=== PATIENT | male | born 1950 | race Caucasian/White ===

== ENCOUNTER 2021-01-12 04:55 | Emergency (ER) | payer MEDICARE, OTHER ==
[~2021-01-12] VITALS: Ht 175.3 cm; Wt 99.8 kg
[~2021-01-12 04:55] MED LIST: ASPI-485 PO; HYDR25TA9 PO; LISI20TA21 PO; METO50TA6 PO
[2021-01-12 05:14] VITALS: BP_SYST 130; BP_DIAS 60; BP_DIAS 78
--- NOTE | 2021-01-12 05:31 | DIREP ---
PROCEDURE:CT HEAD WITHOUT CONTRAST TECHNIQUE:Axial cuts were obtained through the head, without intravenous contrast material. The images were viewed at brain and bone settings. COMPARISON:None. INDICATIONS:Acute left hand numbness, history of prior stroke on Eliquis, status post C FINDINGS: VENTRICLES:Normal. CEREBRUM:There is no evidence of intracranial hemorrhage. No midline shift or focal mass effect is seen. Minimal supratentorial involutional changes are noted. Atherosclerosis is noted within the left vertebral artery and cavernous portions of the internal carotid arteries. CEREBELLUM:Normal. BRAINSTEM:Normal. SKULL:Normal. SINUSES:Normal. OTHER:Negative. CONCLUSION: 1. CT scan of the brain is unremarkable. Dictated by: Baron Mckeon M.D. on 01/12/2021 at 05:28 AM
--- NOTE | 2021-01-12 05:32 | DIREP ---
PROCEDURE:CHEST 1 VIEW COMPARISON:[facility], CR, XRAY CHEST 2 VWS, 11/29/2018, 10:48 AM. INDICATIONS:Acute left hand numbness, prior history of stroke, status post CABG with wh FINDINGS: LUNGS/PLEURA:No significant pulmonary parenchymal abnormalities. No effusions. VASCULATURE:Atherosclerotic disease of the thoracic aorta is noted. CARDIAC:Normal. No cardiac silhouette abnormality or cardiomegaly. Status post CABG. MEDIASTINUM:Normal. No visible mass or adenopathy. BONES:Normal. No fracture or visible bony lesion. OTHER:Negative. CONCLUSION: 1. No active cardiopulmonary disease demonstrated; status post CABG. No change is noted since 11/29/2018. Dictated by: Baron Mckeon M.D. on 01/12/2021 at 05:30 AM
[2021-01-12 05:42] LABS: BASOPHIL # 0.1 10^3/uL (0.0-0.1); BASOPHIL % 0.6 % (0.0-0.2); EOSINOPHIL # 0.2 10^3/uL (0.0-0.2); EOSINOPHIL % 2.8 % (0.0-5.0); LYMPHOCYTES # 2.41 10^3/uL1 (1.0-4.8); LYMPHOCYTES % 30.2 % (24.0-44.0); MEAN CORP HGB 32.5 pg (26-34); MONOCYTES # 0.8 10^3/uL (0.3-0.8); MONOCYTES % 9.9 % (5.0-12.0); NEUTROPHIL # 4.5 10^3/uL (1.8-7.7); NEUTROPHILS % 56.2 % (41.0-85.0); PLATELET COUNT 206 10^3/uL (150-400); RED CELL DISTRIBUTION WIDTH 14.2 % (11.5-14.5)
--- NOTE | 2021-01-12 05:44 | PCM.EKG ---
[facility] Test Date: 2021-01-12 Test Time: 05:25:55 Pat Name: MARLENE PALMER Department: Room: Gender: M Artists' Model: : 1950 Requested By: MARY MENDOZA Order Number: [id number] Reading MD: Mary Mendoza Jr Measurements Intervals [place] Rate: 84 P: 72 WI: 146 QRS: 68 QRSD: 112 T: 60 QT: 446 QTc: 528 Interpretive Statements Sinus rhythm Borderline intraventricular conduction delay Prolonged QT interval No previous ECG available for comparison Electronically Signed On 01-13-2021 3:57:32 CDT by Mary Mendoza Jr Please click the below link to view image of tracing.
--- NOTE | 2021-01-12 05:50 | ER.PDOC ---
General Chief Complaint: Stroke Symptoms Stated Complaint: POSS STROKE Time seen by MD: 04:57 Source: patient, family Exam Limitations: no limitations History of Present Illness Initial Comments This 70-year-old male is here accompanied by his having had onset of numbness/tingling in the entire left hand at 3:45 AM and states that he felt like he was drunk and could not walk easily. He did not fall and did not have any sensation of vertigo but did feel that he did not have his normal coordination when walking. He notified his at 4:30 AM that he wanted to come to the emergency department when the symptoms did not resolve spontaneously. He denies any headache or any head injury. He suffered a right sided sensory and motor deficit stroke in June 2020 and has rehabbed reclaiming most of his normal function with no speech deficits or other cognit carly deficits and only minimal limp involving weakness of the right leg. Since the original stroke he has been on Eliquis and aspirin 81 mg as well as atorvastatin. The stroke in June was treated at [facility] in [place]. Patient has had a left carpal tunnel release a number of years ago with no residual numbness in the left hand associated with that. He underwent a three-vessel CA BG in 2009 and has not undergone a recatheterization since that time. He does not have angina or use nitroglycerin or other nitrates. Patient was drinking between 12 and 18 beers daily until he had the stroke in June and has completely stopped drinking since. He smoked a number of years ago but was using smokeless tobacco until the stroke in June. Allergies: Uncoded Allergies: NO KNOW ALLERGY (Allergy, Unknown, 06/10/17) NO ALLERGYS Home Meds Reported Medications Aspirin (ASPIR 81) 81 Mg Tablet.dr, 81 MG PO DAILY 07/13/17 Lisinopril (LISINOPRIL) 20 Mg Tablet, 20 MG PO DAILY, TABLET 07/13/17 Hydrochlorothiazide (HYDROCHLOROTHIAZIDE) 25 Mg Tablet, 25 MG PO DAILY, TABLET 07/13/17 Metoprolol Tartrate 50MG (LOPRESSER 50MG) 50 Mg Tablet, 50 MG PO DAILY for HYPERTENSION, #60 TAB 07/13/17 Past Medical History Medical History: CVA/TIA/stroke, coronary artery disease, cardiac problems, high cholesterol, hypertension, thyroid disease, other (Patient is on 25 mcg of levothyroxine daily but does not know the basis of his hypothyroidism. No recent weight loss or weight gain and no medication changes) Surgical History: back, other (Patient prior surgeries include 2 lumbar disc surgeries many years ago. Three-vessel CABG 2009. Carpal tunnel release left hand shortly after 1999.) Family History Significant Family History: heart disease, hypertension Social History Smoking: quit greater than 1 year Alcohol Use: none Drug Use: none Review of Systems Constitutional: see HPI Eyes: denies blurred vision, denies decreased acuity, denies pain, denies photophobia, denies shadows, denies tunnel vision Ears, Nose, Mouth, Throat: no symptoms reported Respiratory: see HPI; denies cough, denies shortness of breath, denies stridor, denies wheezing, denies other (Patient has a history of mild dyspnea with exertion if he walks too far and too fast) Cardiovascular: see HPI; denies chest pain, denies edema, denies palpitations, denies syncope Gastrointestinal: denies abdominal pain, denies constipation, denies diarrhea, denies nausea Genitourinary: denies discharge, denies dysuria, denies hematuria, denies pain Musculoskeletal: see HPI, back pain; denies joint pain, denies joint swelling, denies muscle pain, denies muscle stiffness, denies neck pain Skin: no symptoms reported Psychiatric/Neurological: see HPI Endocrine: see HPI; denies unexplained weight gain, denies unexplaned weight loss Hematologic/Lymphatic: see HPI Physical Exam General Appearance: alert, no distress, anxious HEENT: no apparent trauma, no nystagmus, PERRL, pharynx nml, airway intact, oral exam nml Neuro/Psych: oriented x3, nml speech/cognition, nml mood/affect Cranial Nerves: nml as tested, other (Patient has symmetrical face with symmetrical movement and normal muscles of facial expression as well as mastication) Cerebellar: other (Patient has nearly normal dmaaol-psko-hipyjc with the exception of subtle left hand dysmetria on closed eye [id number] but normal finger follow. No dysarthric movement or clogging. Good maintenance of rapid alternating movements. Romberg and gait are not tested but the patient is able to transfer to the stretcher without assistance) Peripheral Exam: motor nml, reflexes nml, other (Patient has no widespread sensory deficits or any cutaneous nerve deficits in the hands but does have sensory alteration in the entire left hand in a glove distribution. He has a well-healed carpal tunnel surgical scar and this is not an exacerbation of carpal tunnel. NIH stroke scale has one-point for the left hand deficit. ) Neck: supple, non-tender, no carotid bruit Respiratory: no resp distress, wheezing, other (Patient has mild diffuse wheez ing more on the right than the left but no use of accessory muscles. He has no dullness to percussion over any lung feels and has no loss of cardiac dullness. No increased AP diameter or hyperresonance to percussion. No active coughing.) CVS: reg rate & rhythm, murmur, other (Patient has a 2/6 systolic ejection murmur but no neck vein distention and only trace dependent edema. No friction rub. No ectopy heard on extended auscultation or seen on the monitor.) Abdomen: non-tender, no distention, hepatomegaly, other (Patient has a moderate umbilical hernia easily reduced and has widening of the median raphae without ventral hernia. Abdomen is soft and nontender and otherwise negative) Skin: color nml, no rash, warm/dry Extremities: non-tender, nml ROM, other (Patient has multiple lumbar surgical scars, well-healed with reduced lumbar lordosis but no list or muscle tone asymmetry in the back. Negative SLRs. Patient has trace dependent edema but no palpable cords and negative Homans' sign) Results/Orders Results/Orders Orders - MARY GIRON MD Cbc With Auto Diff (01/12/21 05:05) Comprehensive Metabolic Panel (01/12/21 05:05) Creatine Kinase (01/12/21 05:05) PT (01/12/21 05:05) Xr Chest 1v (01/12/21 05:05) Partial Thromboplastin Time. (01/12/21 05:05) Troponin I (01/12/21 05:05) Urinalysis (01/12/21 05:05) Ekg-Routine (01/12/21 05:05) Ct Head Wo Contrast (01/12/21 05:05) Rt O2 Per Hour (01/12/21 05:05) Saline Lock (01/12/21 05:05) Covid19 Antigen Brianna Deb (01/12/21 05:05) Vital Signs Date Time Temp Pulse Resp B/P (MAP) Pulse Ox O2 Delivery O2 Flow Rate FiO2 01/12/21 05:14 98.0 78 22 01/12/21 05:14 98.0 78 20 95 01/12/21 05:14 98.0 78 22 95 Laboratory Tests Test 01/12/21 05:40 White Blood Count 8.0 10^3/uL (4.5-11.0) Red Blood Count 4.68 10^6/uL (4.50-5.90) Hemoglobin 15.2 g/dL (13.9-16.3) Hematocrit 46.3 % (37.0-53.0) Mean Corpuscular Volume 98.9 fL (78-100) Mean Corpuscular Hemoglobin 32.5 pg (26-34) Mean Corpuscular Hemoglobin Concent 32.8 g/dL (33-36.5) L Red Cell Distribution Width 14.2 % (11.5-14.5) Platelet Count 206 10^3/uL (150-400) Mean Platelet Volume 10.5 fL (7.8-11.0) Neutrophils (%) (Auto) 56.2 % (41.0-85.0) Lymphocytes (%) (Auto) 30.2 % (24.0-44.0) Monocytes (%) (Auto) 9.9 % (5.0-12.0) Neutrophils # (Auto) 4.5 10^3/uL (1.8-7.7) Lymphocytes # (Auto) 2.41 10^3/uL1 (1.0-4.8) Monocytes # (Auto) 0.8 10^3/uL (0.3-0.8) Absolute Immature Granulocyte (auto 0.02 10^3 u/L (0-2) Absolute Eosinophils (auto) 0.2 10^3/uL (0.0-0.2) Immature Granulocytes % 0.30 % (0.00-0.50) Eosinophils % 2.8 % (0.0-5.0) Basophils % 0.6 % (0.0-0.2) H Basophils # 0.1 10^3/uL (0.0-0.1) Prothrombin Time 10.8 SEC (9.6-12.0) Prothrombin Time INR (Non-Therap) 1.0 Activated Partial Thromboplast Time 25.4 SEC (24.67-30.72) Sodium Level 139 mmol/L (132-145) Potassium Level 4.1 mmol/L (3.6-5.2) Chloride Level 103.0 mmol/L (96-109) Carbon Dioxide Level 25.2 mmol/L (20.0-32) Anion Gap 14.9 Blood Urea Nitrogen 28 mg/dL (7-18) H Creatinine 1.03 mg/dL (0.59-1.40) Estimated GFR () 86.9 (>/=60) Est GFR (CKD-EPI)(Non-Afr Haitian) 71.8 (>/=60) BUN/Creatinine Ratio 27.0 Glucose Level 106 mg/dL (70-110) Calcium Level 8.9 mg/dL (8.4-10.5) Total Bilirubin 1.0 mg/dL (0.2-1.0) Aspartate Amino Transferase (AST) 15 U/L (0-35) Alanine Aminotransferase (ALT) 25 U/L (12-78) Alkaline Phosphatase 65 U/L (50-136) Total Creatine Kinase 45 U/L (39-308) Troponin I < 0.02 ng/mL (0.00-0.05) Total Protein 6.8 g/dL (6.4-8.2) Albumin 3.6 g/dL (3.4-5.0) Globulin 3.2 Albumin/Globulin Ratio 1.125 SARS-CoV-2 Antigen (Rapid) NEGATIVE (NEGATIVE) Progress Progress Patient is being transferred to [facility] for further assessment and care after negative CT scan and negative labs. Despite history of heavy alcohol intake for years the patient has no liver dysfunction on labs. BUN/creatinine ratio is slightly elevated consistent with poor hydration. No renal failure. Normal anion gap and electrolytes. CBC is normal. Patient is on Eliquis and PT and INR show as normal. NIHSS calculates as 1. Ultimately with assistant facility manager we ambulated the patient and he does not bear off in either direction but has some gait dysarthria and he does have a positive Romberg which was not initially tested. Patient is within the window for thrombolysis but stroke score is too low and posterior infarct symptoms/signs are not severe enough to warrant thrombolysis. Patient is already on Eliquis and aspirin and has not missed any medications. I had a discussion with the patient and his about consideration of thrombolysis and we jointly have elected to forego thrombolysis for this relatively mild posterior infarct. EKG/XRAY/CT/US EKG: NSR EKG Comments: Patient has long QTc 528 ms. QRS duration 112 ms with intraventricular con XRAY Comments: Chest x-ray shows no infiltrates or effusions, no cardiomegaly, Patient trin[place] CT Comments: CT head scan is unremarkable with no significant atrophy for age, no bleedi ER DEPART Departure Time of Disposition: 06:25 Disposition: 02 XFER SHT-TRM HOSP Impression: Primary Impression: Acute stroke due to ischemia Condition: Stable Patient Instructions: Stroke Prevention, [id number]-[id number], Stroke, Pfvn-tr-Bvsj, Stroke, Therapy After, Adult Referrals: ISIDRA YU FISH CHECKER (PCP) PRIMARY CARE PROVIDER Duration or Time Spent with Pa: 45 minutes with 5 rechecks Return to Work/School Can a patient return to work?: No Critical Care Note Total Time (mins): 45 Comments Patient has required acute assessment and consideration of thrombolysis for mild posterior infarct with minimal gait deficit and mild positive Romberg. Shared decision making utilized in holding thrombolysis MARY GIRON MD Jan 12, 2021 05:50
--- NOTE | 2021-01-12 06:01 | NUR ---
COVID NEGATIVE, EDP NOTIFIED
[2021-01-12 06:06] LABS: ALANINE AMINOTRANSFERASE(ML) 25 U/L (12-78); ALKALINE PHOSPHATASE 65 U/L (50-136); ASPARTATE AMINO TRANSFERASE 15 U/L (0-35); CALCIUM 8.9 mg/dL (8.4-10.5); CARBON DIOXIDE 25.2 mmol/L (20.0-32); GLUCOSE 106 mg/dL (70-110)
[2021-01-12 06:49] VITALS: BP 156/70
--- NOTE | 2021-01-12 06:49 | NUR ---
[facility] PT TAKEN BY EMS TO [facility] ED IN STABLE CONDITION.
== END 2021-01-12 06:49 | disposition short-term general hospital (02) ==
LOC: ER 04:55
DX: I63.89 Other cerebral infarction (principal); Z20.822 Contact with and (suspected) exposure to COVID-19; E07.9 Disorder of thyroid, unspecified; E78.00 Pure hypercholesterolemia, unspecified; I10 Essential (primary) hypertension; I25.10 Atherosclerotic heart disease of native coronary artery without angina pectoris; Z79.01 Long term (current) use of anticoagulants; Z79.82 Long term (current) use of aspirin; Z79.899 Other long term (current) drug therapy; Z82.49 Family history of ischemic heart disease and other diseases of the circulatory system; Z95.1 Presence of aortocoronary bypass graft
CPT/HCPCS: 70450; 71045; 80053; 82550; 84484; 85025; 85610; 85730; 87426; 93005; 99291

== ENCOUNTER → 2021-03-06 | Outpatient (CLI) | payer MEDICARE, OTHER ==
[~2021-03-06] MED LIST changes: +LEXISCAN IV STA
--- NOTE | 2021-03-07 04:28 | STRESS ---
DATE OF SERVICE: 03/06/2021 DICTATOR NAME: BRETT MIRANDAKASSIDYScott CARDIAC STRESS TEST INDICATION: Chest pain. FINDINGS: Baseline EKG shows normal sinus rhythm with poor R-wave progression, likely normal variant. Stress EKG shows sinus tachycardia, unchanged from baseline. At the end of recovery, EKG shows normal sinus rhythm, unchanged from baseline. Frequent premature ventricular complexes are noted during stress and at recovery. Baseline blood pressure is 155/67 and remained the same during stress. At the end of recovery, the blood pressure was 154/76. Baseline heart rate is 90 beats per minute and bill to 103 beats per minute during stress. At the end of recovery, the heart rate was 93 beats per minute. Blood pressure and heart rate were appropriate for stress. There were no significant symptoms noted during stress. There were no arrhythmias noted during stress. EKG portion of stress test is negative for myocardial ischemia. Nuclear images were obtained with a rest dose of 10.44 mCi technetium 99 sestamibi and stress dose of 31.0 mCi technetium 99 sestamibi. Nuclear images show a large area of periinfarct ischemia involving the inferior wall. Left ventricular ejection fraction is 50%. EDV is 162 mL, ESV is 81 mL. The left ventricle is moderately dilated. Gated motion images shows normal wall motion across all segments of the left ventricle. TID is 1.2. There is no evidence of diaphragmatic attenuation artifact. IMPRESSION: 1. There is a large area of periinfarct ischemia involving the inferior wall. 2. The left ventricle is moderately dilated. 3. Left ventricular ejection fraction of 50%. 4. This is an abnormal study. Recommend left heart catheterization. Lilliam PORTER D.O. DR: JULIA TID: [id number] RECEIPT: [id number]
== END | disposition home or self-care (01) ==
LOC: RAD 08:57
PROVIDERS: ATTEND Internal Medicine Interventional Cardiology
DX: I10 Essential (primary) hypertension (principal); I25.89 Other forms of chronic ischemic heart disease
CPT/HCPCS: 78452; 93017; A9500; J2785

== ENCOUNTER → 2021-03-14 | Outpatient (CLI) | payer MEDICARE, OTHER ==
[~2021-03-14] MED LIST changes: -LEXISCAN IV STA
--- NOTE | 2021-03-14 21:56 | PCM.ECHO ---
APPROVED REPORT EXAM: Comprehensive 2D, Doppler, and color-flow Echocardiogram. Patient Location: OUT-PATIENT Indications Hypertension/HDD 2D Dimensions LVOT Diameter 2.55 (1.8-2.4cm) LVEF(%) 19.61 (>50%) M-Mode Dimensions Left Atrium(MM) 4.20 (2.5-4.0cm) IVSd 1.00 (0.7-1.1cm) Aortic Root 4.10 (2.2-3.7cm) LVDd 5.95 (4.0-5.6cm) Aortic Cusp Exc 1.65 (1.5-2.0cm) PWd 1.60 (0.7-1.1cm) MV EPSS 3.10 (<0.5cm) IVSs 1.85 cm FS (%) 42.10 % LVDs 3.40 (2.0-3.8cm) ESV(Teich) 49.03 ml PWs 1.50 cm LVEF(%) 72.27 (>50%) Volumes Biplane 2D LV Volumes Biplane 2D LA Volumes LVEDv A4C 142.46 mL LA ESV Index LVESv A4C 114.52 mL Aortic Valve AoV Peak Javier. 0.95 m/s AoV VTI 23.75 cm AO Peak GR. 3.80 mmHg AO Mean GR. 2.10 mmHg LVOT VTI 30.33 cm LVOT Peak Javier. 1.27 m/s ASHLEY(VTI)/BSA 6.53 cm2/m2 ASHLEY (VTI) 6.53 cm2 AI P 1/2 Time 640.80 ms Mitral Valve MV E Velocity 0.60m/s MR Peak Gr. 28.80mmHg MV A Velocity 0.55m/s Pulmonary Valve PV Peak Velocity 0.55m/s PV Peak Grad. 1.25mmHg RVOT VTI 14.86cm Tricuspid Valve TR P. Velocity 1.45m/s RAP ESTIMATE 10.00mmHg TR Peak Gr. 8.62mmHg RVSP 18.62mmHg LEFT VENTRICLE The left ventricle is normal size. The left ventricular systolic function is normal. The left ventricular ejection fraction is within the normal range. There is normal left ventricular wall thickness. There is normal LV segmental wall motion. There is no ventricular septal defect visualized. No left ventricle thrombus noted on this study. LVEF is 60-65%. RIGHT VENTRICLE The right ventricle is normal size. The right ventricular systolic function is normal. There is normal right ventricular wall thickness. ATRIA The left atrium size is normal. The right atrium size is normal. The interatrial septum is intact with no evidence for an atrial septal defect. AORTIC VALVE The aortic valve is normal in structure. There is no aortic valvular stenosis. Severe aortic regurgitation. There is no aortic valvular vegetation. MITRAL VALVE The mitral valve is normal in structure. There is no mitral valve stenosis. Moderate mitral regurgitation. There is no evidence of mitral valve vegetations. TRICUSPID VALVE The tricuspid valve is normal in structure. There is no tricuspid valve stenosis. Mild tricuspid regurgitation. PULMONIC VALVE Pulmonic valve is not well visualized. There is no pulmonic valvular stenosis. There is no pulmonic valvular regurgitation. GREAT VESSELS The aortic root is normal in size. Pulmonary artery is not well visualized. Aortic arch is not well visualized. The IVC is normal in size and collapses >50% with inspiration. PERICARDIUM There is no pericardial effusion. There is no pleural effusion. Other Information Study Quality: Fair Further Testing Further Testing : For further evaluation BONI is recommended. <Conclusion> The left ventricular systolic function is normal. LVEF is 60-65%. Severe aortic regurgitation. Moderate mitral regurgitation. Mild tricuspid regurgitation. Electronically signed by : BRETT BENITEZ. 03/14/2021 21:56:10
== END | disposition home or self-care (01) ==
LOC: RT 12:44
PROVIDERS: ATTEND Internal Medicine Interventional Cardiology
DX: I08.3 Combined rheumatic disorders of mitral, aortic and tricuspid valves (principal); I10 Essential (primary) hypertension
CPT/HCPCS: 93306

== ENCOUNTER 2021-03-20 11:50 | Day surgery (SDC) | payer MEDICARE, OTHER ==
[2021-03-18 09:44] VITALS: BP 159/68
--- NOTE | 2021-03-18 10:13 | PCM.EKG ---
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
[2021-03-18 10:19] LABS: BASOPHIL % 0.6 % (0.0-0.2); EOSINOPHIL # 0.2 10^3/uL (0.0-0.2); EOSINOPHIL % 3.7 % (0.0-5.0); LYMPHOCYTES # 1.87 10^3/uL1 (1.0-4.8); LYMPHOCYTES % 30.1 % (24.0-44.0); MEAN CORP HGB 32.4 pg (26-34); MONOCYTES # 0.6 10^3/uL (0.3-0.8); MONOCYTES % 9.8 % (5.0-12.0); NEUTROPHIL # 3.4 10^3/uL (1.8-7.7); NEUTROPHILS % 55.5 % (41.0-85.0); PLATELET COUNT 204 10^3/uL (150-400); RED CELL DISTRIBUTION WIDTH 14.1 % (11.5-14.5)
[2021-03-18 10:36] LABS: CALCIUM 8.9 mg/dL (8.4-10.5); CARBON DIOXIDE 29.5 mmol/L (20.0-32)
[~2021-03-20] VITALS: Ht 170.2 cm; Wt 102.1 kg
[~2021-03-20 11:50] MED LIST changes: +SUBLIMAZE ONE; +VERSED ONE; +XYLOCAINE ONE
[2021-03-20 11:55] VITALS: BP 156/65
[2021-03-20] MEDS: NS 1000ML 1,000 ML IV SCH (12:20)
[2021-03-20] MEDS ORDERED: ATOR40TA PO (15:38)
[2021-03-20] MEDS ORDERED: LEVO75TA6 PO (15:38)
[2021-03-20] MEDS ORDERED: APIX5TAB PO (15:38)
[2021-03-20] MEDS ORDERED: CYCL5TAB PO (15:38)
[2021-03-20] MEDS ORDERED: LEVO25TA PO (15:38)
[2021-03-20] MEDS ORDERED: HYDR-3101 PO (15:38)
[2021-03-20] MEDS ORDERED: HEPARIN ONE (17:23)
[2021-03-20] MEDS ORDERED: VERSED ONE (17:24)
[2021-03-20] MEDS ORDERED: SUBLIMAZE ONE (17:24)
[2021-03-20] MEDS ORDERED: PLAVIX ONE (17:38)
[2021-03-20] MEDS ORDERED: ASPIRIN ONE (17:38)
[2021-03-20] MEDS ORDERED: NORCO 7.5MG PO PRN (21:00)
[2021-03-20] MEDS ORDERED: LIPITOR PO SCH (21:00)
[2021-03-20] MEDS ORDERED: LEVOTHYROXINE SODIUM PO SCH (21:00)
[2021-03-20] MEDS ORDERED: APRESOLINE IV PRN (21:00)
--- NOTE | 2021-03-20 22:48 | [facility] ---
DATE OF SERVICE: 03/20/2021 DICTATOR NAME: BRETT BENITEZ DO INDICATIONS: Abnormal cardiac stress test. This is a 71-year-old male who was seen in the outpatient setting for chest discomfort. He underwent cardiac ischemic workup, which was noted to be abnormal. In view of these, he was set up for left heart catheterization after informed consents were obtained. PROCEDURES PERFORMED: 1. 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 Status post successful percutaneous coronary intervention using a Resolute Sameer 2.25 x 15 mm drug-eluting stent. 2. Left internal mammary artery angiography. 3. Saphenous venous graft angiography. 4. Selective coronary angiography. 5. Left ventriculography. 6. Hemostasis established using a 6-Ecuadorean Mynx control. DESCRIPTION OF PROCEDURE: Access was obtained using a 4-Ecuadorean micropuncture kit to cannulate the right common femoral artery. The 4-Ecuadorean sheath was then upsized to a 6-Ecuadorean regular short sheath. Diagnostic angiography was then carried out using an Amplatz left 3 catheter to engage the left main. The left main was noted to have an ostial 20-30% lesion. It trifurcates into left anterior descending artery, a ramus intermedius branch and the left circumflex artery. The left anterior descending artery is noted to be chronically totally occluded in the mid segment. It is severely diseased in the proximal segment. Biphasic flow is visualized in the left anterior descending artery. The left circumflex artery is noted to be chronically totally occluded in the proximal segment. The ramus intermedius branch has a proximal 20-30% lesion. There is a focal 90% lesion in the mid to distal ramus intermedius branch. The ramus intermedius artery was not bypassed. The Amplatz left 3 catheter was then exchanged for a Zuly right catheter, which was used to cross the aortic valve into the left ventricle. Left ventriculography was performed. LVEF was noted to be 55%. LVEDP was noted to be 12. Upon pullback of the Zuly right catheter, there was no gradient across the aortic valve. The Zuly right catheter was then used to engage the RCA. RCA angiography revealed a dominant RCA with a proximal 50-60% lesion. The RCA is noted to be extremely tortuous bifurcating distally to an RPL and RPDA branch. Both branches are noted to have mild luminal irregularities. The Zuly right catheter was then used to engage the SVG graft to the obtuse marginal branch. SVG angiography showed a widely patent SVG graft to the obtuse marginal branch. The Zuly right catheter was then exchanged for the left internal mammary catheter, which was used to engage the internal mammary artery. Angiography revealed a widely patent RAMOS graft to the mid LAD with a jump graft to the diagonal branch. Antegrade flow is visualized to the mid to distal LAD as well as the diagonal branch. I then elected to intervene in the ramus intermedius branch. Using an EBU 4 guide catheter, the left main was successfully engaged. A Runthrough wire was then introduced into the ramus intermedius branch. The lesion in the mid ramus branch was then treated with direct stenting using a Resolute Sameer 2.25 x 15 mm drug-eluting stent. The stent was successfully deployed with good step up and step down. The wire and the guide were then taken out and hemostasis was established using a 6-Ecuadorean Mynx control. The patient left the tag and label cutter in stable condition. There were no complications. IMPRESSION: 1. Severe stenosis of the ramus intermedius artery status post successful percutaneous coronary intervention with a drug-eluting stent. 2. Left internal mammary artery angiography. 3. Saphenous venous graft angiography. 4. Patent RAMOS to the LAD, patent SVG to the OM1 branch, patent RAMOS jump graft to the diagonal artery. 5. Selective coronary angiography. 6. Left ventriculography. 7. Left ventricular ejection fraction of 55%. 8. Left ventricular end-diastolic pressure of 12. 9. Hemostasis established using a 6-Ecuadorean Mynx control. RECOMMENDATIONS: The patient is to remain on dual antiplatelet therapy as well as statin therapy. Lifestyle modification factors have been strongly advised. He will be kept overnight for anticipated discharge in the morning. He has been instructed to follow up with me in the office in 2-3 weeks. Lilliam PORTER D.O. DR: ROSA VALENZUELA: [id number] RECEIPT: [id number] NITZA
[2021-03-20] MEDS ORDERED: LIPITOR ONE (22:59)
[2021-03-20] MEDS: ELIQUIS PO SCH (23:00)
[2021-03-20] MEDS: FLEXERIL PO SCH (23:01)
[2021-03-20 23:14] VITALS: BP 174/78
[2021-03-21 04:36] VITALS: BP 161/69
[2021-03-21] MEDS ORDERED: LEVOTHYROXINE SODIUM PO SCH (06:30)
[2021-03-21] MEDS: NS 1000ML 1,000 ML IV SCH (07:25)
[2021-03-21 07:30] VITALS: BP 169/78
[2021-03-21] MEDS ORDERED: DUO 0.5-3(2.5) MG/3 ML IH ONE (08:14)
[2021-03-21] MEDS ORDERED: HYDROCHLOROTHIAZIDE PO SCH (09:00)
[2021-03-21] MEDS ORDERED: ZESTRIL PO SCH (09:00)
[2021-03-21] MEDS ORDERED: PLAVIX PO SCH (09:00)
[2021-03-21] MEDS ORDERED: SYNTHROID PO SCH (09:00)
[2021-03-21] MEDS ORDERED: ASPIRIN EC PO SCH (09:00)
[2021-03-21] MEDS ORDERED: DUO 0.5-3(2.5) MG/3 ML IH PRN (09:00)
[2021-03-21] MEDS: ELIQUIS PO SCH (09:13)
[2021-03-21] MEDS: FLEXERIL PO SCH (09:14)
[2021-03-21] MEDS ORDERED: CLOP75TA PO (11:35)
--- NOTE | 2021-03-21 11:45 | PRM.DC ---
Discharge Summary Date of Discharge: Mar 21, 2021 Time of Request to Discharge: 11:05 Reason for Visit: Abnormal cardiac stress test; left heart catheterization Hospital Course This is a 71-year-old male who was seen in the outpatient setting for chest discomfort. He underwent cardiac ischemic workup, which was noted to be abnormal. In view of these, he was set up for left heart catheterization after informed consents were obtained. PROCEDURES PERFORMED: 1. 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 Status post successful percutaneous coronary intervention using a Resolute [place] 2.25 x 15 mm drug-eluting stent. 2. Left internal mammary artery angiography. 3. Saphenous venous graft angiography. 4. Selective coronary angiography. 5. Left ventriculography. 6. Hemostasis established using a 6-Monegas[place] Mynx control. Patient will discharge today and will follow up with cardiology in 2-3 weeks. General: Alert, Oriented X3, Cooperative, No acute distress HEENT: Atraumatic, PERRLA Neck: Supple, No JVD Lungs: Clear to auscultation, Normal air movement Heart: Regular rate, Normal S1, Normal S2 Abdomen: Normal bowel sounds, Soft Extremities: No clubbing, No cyanosis Skin: No rashes, No breakdown Neuro: Normal gait, Normal speech Psych/Mental Status: Mental status NL, Mood NL Scheduled Apixaban (Eliquis), 5 MG PO BID Aspirin (Aspir 81), 81 MG PO DAILY, (Reported) Atorvastatin 40MG (Lipitor 40MG), 1 TAB PO HS Atorvastatin 40MG (Lipitor 40MG), 1 TAB PO HS Clopidogrel Bisulfate (Clopidogrel), 75 MG PO DAILY Cyclobenzaprine Hcl (Flexeril), 1 TAB PO TID Hydrochlorothiazide (Hydrochlorothiazide), 25 MG PO DAILY, (Reported) Levothyroxine Sodium (Euthyrox), 1 TAB PO DAILY24 Levothyroxine Sodium (Levothyroxine Sodium), 1 TAB PO DAILY Lisinopril (Lisinopril), 20 MG PO DAILY, (Reported) Discontinued Medications Hydrocodone Bit/Acetaminophen ([place] 7.5-325), 1 EACH PO Q4H PRN for PAIN, (Reported) Discontinued Reason: Discontinue Metoprolol Tartrate 50MG ([place] 50MG), 50 MG PO DAILY, (Reported) Discontinued Reason: No Longer Taking Sepsis Evaluation @ Discharge 03/21/21 07:28 Constitutional: no symptoms reported Eyes: no symptoms reported Ears: no symptoms reported Nose: no symptoms reported Mouth: no symptoms reported Throat: no symptoms reported Respiratory: no symptoms reported Cardiovascular: no symptoms reported Gastrointestinal: no symptoms reported Musculoskeletal: no symptoms reported Skin: no symptoms reported Neurological: no symptoms reported Hematologic/Lymphatic: no symptoms reported Immunological/Allergic: no symptoms reported Stroke Discharge Summary Discharge on Anti-Thrombotics: Yes Discharge on Antcoagulation Th: Yes Discharge on Statins: Yes Plan Assessment 1. Essential (primary) hypertension 2. Atherosclerotic heart disease of [place] coronary artery without angina pectoris 3. Mixed hyperlipidemia 4. Body mass index [BMI] 33.0-33.9, adult 5. Family history of ischemic heart disease and other diseases of the circulatory system 6. Coronary angioplasty status 7. Hypothyroidism 8. Malignant neoplasm of pharynx 9. Type 2 diabetes mellitus 10. 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 Status post successful percutaneous coronary intervention using a Resolute [place] 2.25 x 15 mm drug-eluting stent. CAD status post CABG x3 vessel done in 2009 with a RAMOS to the LAD and SVG graft to OM1 and OM 2. 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 Patient is on Eliquis for oral anticoagulation. Factor V Leyden deficiency. Discharge Disposition: Stable Plan PROCEDURES PERFORMED: 1. 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 Status post successful percutaneous coronary intervention using a Resolute [place] 2.25 x 15 mm drug-eluting stent. 2. Left internal mammary artery angiography. 3. Saphenous venous graft angiography. 4. Selective coronary angiography. 5. Left ventriculography. 6. Hemostasis established using a 6-[place] Mynx control. 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 Patient seen and examined by me. I agree with assessment and plan as stated EDUARDA Magana APRN, NP Mar 21, 2021 11:45 BRETT BENITEZ DO Mar 21, 2021 15:14
[2021-03-21 12:00] VITALS: BP 166/76
[2021-03-21] MEDS ORDERED: ATOR40TA PO (12:14)
--- NOTE | 2021-03-21 12:30 | NUR ---
DC DC INSTRUCTIONS GIVEN. PT VOICED UNDERSTANDING AND SIGNED WRITTEN OF SAME.
[2021-03-21 12:40] VITALS: BP 166/76
--- NOTE | 2021-03-21 12:40 | NUR ---
DC DCD HOME IN STABLE CONDITION VIA W/C TO [employer]IVATE [employer]
[2021-03-22] MEDS ORDERED: LEVOTHYROXINE SODIUM PO SCH (06:30)
== END 2021-03-21 11:26 | disposition home or self-care (01) ==
LOC: CCL 11:50 → MS 17:15 → UNDOADMOB 17:15 → CCL 03-21 11:26 → UNDODISOB 03-21 12:40
PROVIDERS: ATTEND Internal Medicine Interventional Cardiology
DX: I25.10 Atherosclerotic heart disease of native coronary artery without angina pectoris (principal); I10 Essential (primary) hypertension; E78.5 Hyperlipidemia, unspecified; F17.200 Nicotine dependence, unspecified, uncomplicated; R56.9 Unspecified convulsions; E78.2 Mixed hyperlipidemia; E03.9 Hypothyroidism, unspecified; E11.9 Type 2 diabetes mellitus without complications; Z79.899 Other long term (current) drug therapy; Z79.01 Long term (current) use of anticoagulants; Z79.82 Long term (current) use of aspirin; Z82.49 Family history of ischemic heart disease and other diseases of the circulatory system; Z98.61 Coronary angioplasty status; Z95.1 Presence of aortocoronary bypass graft; Z86.73 Personal history of transient ischemic attack (TIA), and cerebral infarction without residual deficits; Z98.890 Other specified postprocedural states; Z72.89 Other problems related to lifestyle
CPT/HCPCS: 36415; 80053; 85025; 85610; 85730; 93005; 93459; 94640; 99152; 99153 ×4; C1760; C1769 ×2; C1874; C1894 ×4; C9600; J1644 ×2; J2250 ×2; J3010 ×2; J7030 ×2; Q9967; C1725; C1887

== ENCOUNTER → 2022-03-24 | Outpatient (CLI) | payer MEDICARE, OTHER ==
[~2022-03-24] MED LIST changes: +APIX5TAB PO; +ATOR40TA PO; +CLOP75TA PO; +CYCL5TAB PO; +HYDR-3101 PO; +LEVO25TA PO; +LEVO75TA6 PO; -SUBLIMAZE ONE; -VERSED ONE; -XYLOCAINE ONE
--- NOTE | 2022-03-24 14:34 | PCM.ECHO ---
APPROVED REPORT EXAM: Comprehensive 2D, Doppler, and color-flow Echocardiogram. Patient Location: OUT-PATIENT Indications Hypertension/HDD 2D Dimensions LVOT Diameter 3.01 (1.8-2.4cm) LVEF(%) 48.74 (>50%) M-Mode Dimensions RVDd 1.00 (2.1-3.2cm) Left Atrium(MM) 4.65 (2.5-4.0cm) IVSd 0.95 (0.7-1.1cm) Aortic Root 4.10 (2.2-3.7cm) LVDd 8.15 (4.0-5.6cm) Aortic Cusp Exc 2.40 (1.5-2.0cm) PWd 0.90 (0.7-1.1cm) MV EPSS 1.00 (<0.5cm) IVSs 1.70 cm FS (%) 22.85 % LVDs 6.30 (2.0-3.8cm) ESV(Teich) 201.50 ml PWs 1.30 cm LVEF(%) 44.26 (>50%) Volumes Biplane 2D LV Volumes Biplane 2D LA Volumes LVEDv A4C 276.59 mL LA ESV Index LVESv A4C 141.79 mL Aortic Valve AoV Peak Javier. 1.55 m/s AoV VTI 37.80 cm AO Peak GR. 9.90 mmHg AO Mean GR. 5.70 mmHg LVOT VTI 30.93 cm LVOT Peak Javier. 1.19 m/s ASHLEY(VTI)/BSA 5.80 cm2/m2 ASHLEY (VTI) 5.80 cm2 AI P 1/2 Time 460.80 ms Mitral Valve MV E Velocity 0.80m/s MR Peak Gr. 10.60mmHg MV A Velocity 0.70m/s TDI Lateral E' P. V 0.11m/s Medial E' P. V 0.11m/s Pulmonary Valve PV Peak Velocity 0.50m/s PV Peak Grad. 1.10mmHg RVOT VTI 10.61cm Tricuspid Valve TR P. Velocity 1.25m/s RAP ESTIMATE 10.00mmHg TR Peak Gr. 6.53mmHg RVSP 16.53mmHg LEFT VENTRICLE The left ventricle is normal size. The left ventricular systolic function is normal. The left ventricular ejection fraction is within the normal range. There is normal left ventricular wall thickness. There is normal LV segmental wall motion. There is no ventricular septal defect visualized. No left ventricle thrombus noted on this study. LVEF is 55%. RIGHT VENTRICLE The right ventricle is normal size. The right ventricular systolic function is normal. There is normal right ventricular wall thickness. ATRIA The left atrium size is normal. The right atrium size is normal. The interatrial septum is intact with no evidence for an atrial septal defect. AORTIC VALVE The aortic valve is normal in structure. There is no aortic valvular stenosis. Severe aortic regurgitation. There is no aortic valvular vegetation. MITRAL VALVE The mitral valve is normal in structure. There is no mitral valve stenosis. Mild mitral regurgitation. There is no evidence of mitral valve vegetations. TRICUSPID VALVE The tricuspid valve is normal in structure. There is no tricuspid valve stenosis. Mild tricuspid regurgitation. There is no tricuspid valve vegetations. PULMONIC VALVE Pulmonic valve is not well visualized. There is no pulmonic valvular stenosis. There is no pulmonic valvular regurgitation. GREAT VESSELS The aortic root is normal in size. Pulmonary artery is not well visualized. Aortic arch is not well visualized. The IVC is normal in size and collapses >50% with inspiration. PERICARDIUM There is no pericardial effusion. There is no pleural effusion. Other Information Study Quality: Fair <Conclusion> The left ventricular systolic function is normal. LVEF is 55%. Severe aortic regurgitation. Mild mitral regurgitation. Mild tricuspid regurgitation. Electronically signed by : BRETT BENITEZ. 03/24/2022 14:33:35
== END | disposition home or self-care (01) ==
LOC: RAD 12:52
PROVIDERS: ATTEND Internal Medicine Interventional Cardiology
DX: I08.3 Combined rheumatic disorders of mitral, aortic and tricuspid valves (principal); I10 Essential (primary) hypertension
CPT/HCPCS: 93306

== ENCOUNTER → 2022-04-29 | Day surgery (SDC) | payer MEDICARE ==
[2022-04-27 10:43] VITALS: BP 146/55
[2022-04-27 11:12] LABS: BASOPHIL % 0.2 % (0.0-0.2); EOSINOPHIL # 0.3 10^3/uL (0.0-0.2); EOSINOPHIL % 6.4 % (0.0-5.0); LYMPHOCYTES # 1.51 10^3/uL1 (1.0-4.8); LYMPHOCYTES % 29.3 % (24.0-44.0); MEAN CORP HGB 32.9 pg (26-34); MONOCYTES # 0.6 10^3/uL (0.3-0.8); MONOCYTES % 11.3 % (5.0-12.0); NEUTROPHIL # 2.7 10^3/uL (1.8-7.7); NEUTROPHILS % 52.6 % (41.0-85.0); PLATELET COUNT 194 10^3/uL (150-400); RED CELL DISTRIBUTION WIDTH 13.7 % (11.5-14.5)
[2022-04-27 11:39] LABS: CARBON DIOXIDE 26.3 mmol/L (20.0-32)
--- NOTE | 2022-04-27 12:12 | PCM.EKG ---
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
[~2022-04-29] VITALS: Ht 175.3 cm; Wt 105.2 kg
[2022-04-29] VITALS (7 sets, daily range): BP systolic 121–151; BP diastolic 50–63
[~2022-04-29] MED LIST changes: +ACET500T73 PO; +CARV12.5 PO; +CETACAINE SPRAY TP ONE; +MELA10TA PO; +MULT-235 PO; +NS 1000ML 1,000 ML IV SCH; +POTA8CAP20 PO; +SUBLIMAZE ONE; +VERSED ONE; +[UNRECOGNIZED DRUG - CODE] PO
--- NOTE | 2022-04-29 23:35 | PCM.ECHO ---
APPROVED REPORT EXAM: Transesophageal echocardiogram with color flow Doppler. Patient Location: OUT-PATIENT Indications R94.30 PROCEDURE After obtaining informed consent, patient underwent transesophageal echo in the [place] [employer]. Type of Sedation : Conscious Sedation Sedation was provided by anesthesiologist. Sedation was administered by Nursing Staff. Sedation was achieved with Versed, Fentanyl intravenously. Transesophageal probe was inserted and advanced into esophagus without difficulty by Dr. Ruggiero. The BONI was performed without complications. Throughout the procedure, the blood pressure, pulse oximetry, cardiac rhythm, and rate were monitored. The patient tolerated the procedure without adverse effects. Recovery from conscious sedation was uneventful and vital signs were stable. LEFT VENTRICLE The left ventricle is normal size. The left ventricular systolic function is normal. The left ventricular ejection fraction is within the normal range. There is normal left ventricular wall thickness. There is normal LV segmental wall motion. There is no ventricular septal defect visualized. No left ventricle thrombus noted on this study. LVEF is 65%. RIGHT VENTRICLE The right ventricle is normal size. The right ventricular systolic function is normal. There is normal right ventricular wall thickness. ATRIA The left atrium size is normal. No thrombus is visualized in the left atrium or appendage. The right atrium size is normal. The interatrial septum is intact with no evidence for an atrial septal defect. AORTIC VALVE The aortic valve is normal in structure. There is no aortic valvular stenosis. Severe aortic regurgitation. There is no aortic valvular vegetation. MITRAL VALVE The mitral valve is normal in structure. There is no mitral valve stenosis. Moderate to severe mitral regurgitation There is no evidence of mitral valve vegetations. TRICUSPID VALVE The tricuspid valve is normal in structure. There is no tricuspid valve stenosis. Mild tricuspid regurgitation. There is no tricuspid valve vegetations. PULMONIC VALVE The pulmonary valve is normal in structure. There is no pulmonic valvular stenosis. Mild pulmonic regurgitation. There is no pulmonic valve vegetations. GREAT VESSELS The aortic root is normal in size. No apparent thoracic aortic dissection. PERICARDIUM There is no pericardial effusion. CONCLUSION The left ventricular systolic function is normal. LVEF is 65%. Severe aortic regurgitation. Moderate to severe mitral regurgitation Mild tricuspid regurgitation. Mild pulmonic regurgitation. <Conclusion> The left ventricular systolic function is normal. LVEF is 65%. Severe aortic regurgitation. Moderate to severe mitral regurgitation Mild tricuspid regurgitation. Mild pulmonic regurgitation. Electronically signed by : BRETT RUGGIERO. 04/29/2022 23:34:45
== END | disposition home or self-care (01) ==
LOC: SDC 06:30
PROVIDERS: ATTEND Internal Medicine Interventional Cardiology
DX: I37.1 Nonrheumatic pulmonary valve insufficiency (principal); I10 Essential (primary) hypertension; I35.1 Nonrheumatic aortic (valve) insufficiency; E78.2 Mixed hyperlipidemia; E11.9 Type 2 diabetes mellitus without complications; E03.9 Hypothyroidism, unspecified; C14.0 Malignant neoplasm of pharynx, unspecified; Z79.01 Long term (current) use of anticoagulants; Z82.49 Family history of ischemic heart disease and other diseases of the circulatory system; Z86.73 Personal history of transient ischemic attack (TIA), and cerebral infarction without residual deficits; Z95.5 Presence of coronary angioplasty implant and graft; Z98.890 Other specified postprocedural states; Z79.82 Long term (current) use of aspirin; Z79.899 Other long term (current) drug therapy
CPT/HCPCS: 80053; 85025; 36415; 85610; 85730; 93005; 93312; 93325; 99152; J2250; J3010; C8925